=== PATIENT | male | born 1985 | race Caucasian/White ===

== ENCOUNTER 2017-02-24 22:49 | Emergency (ER) | payer OTHER ==
[2017-02-24] MEDS ORDERED: ACETAMINOPHEN 325 MG TABLET (FP) PO ONE (22:53)
[2017-02-24] MEDS ORDERED: SODIUM CHLORIDE 0.9% 1000 ML INFUS.BAG IV ONE (23:00)
--- NOTE | 2017-02-24 23:00 | PDOC ---
History of Present Illness - General History Source: Patient Exam Limitations: No Limitations - History of Present Illness Initial Comments: 02/24/17 23:16 The patient is a 31 year old male with no significant past medical history, who presents to the ER with tingling in the left hand and numbness in the left arm for several hours. Patient says he is unstable on his feet. Patient states he has had a throat infection for the past three weeks. He went to the urgent care for his throat infection and was given a shot of prednisone and 1 Z-pack. Patient says he felt better for 3-5 days after the urgent care but symptoms returned. Patient reports he has difficulty swallowing secondary to the pain. He took Advil 30 minutes ago with incomplete relief of symptoms. Denies nausea, vomiting Denies family history of cardiac disorders Denies fever, chills, cough Social Hx: Patient is a smoker Allergy: penicillin <Tisha Vences - Last Filed: 02/24/17 23:16> <Aysha Auguste - Last Filed: 02/25/17 01:31> - General Stated Complaint: CHEST PAIN Time Seen by Provider: 02/24/17 22:53 Past History <Tisha Vences - Last Filed: 02/24/17 23:16> <Aysha Auguste - Last Filed: 02/25/17 01:31> - Past Medical History Allergies/Adverse Reactions: Allergies Allergy/AdvReac Type Severity Reaction Status Date / Time Penicillins Allergy Unknown Verified 02/24/17 23:10 Home Medications: Ambulatory Orders Clindamycin [Cleocin -] 300 mg PO Q6HPO #28 capsule 02/25/17 Review of Systems - Review of Systems Able to Perform ROS?: Yes Comments:: 02/24/17 23:16 CONSTITUTIONAL: Absent: fever, no chills, no fatigue EYES: Absent: visual changes ENT:(+) sore throat Present: Absent: ear pain CARDIOVASCULAR: Absent: chest pain, no palpitations RESPIRATORY: Absent: cough, no SOB GI: Absent: abdominal pain, no nausea, no vomiting, no constipation, no diarrhea GENITOURINARY: Absent: dysuria, no frequency, no hematuria MUSCULOSKELETAL: Present: (+) left arm numbness, (+) left hand tingling Absent: back pain, no arthralgia, no myalgia SKIN: Absent: rash NEURO: Absent: headache <Tisha Vences - Last Filed: 02/24/17 23:16> *Physical Exam - Vital Signs Last Vital Signs Temp Pulse Resp BP Pulse Ox 98.6 F 106 H 24 156/98 99 02/24/17 23:10 02/24/17 23:10 02/24/17 23:10 02/24/17 23:10 02/24/17 23:10 - Physical Exam Comments: 02/24/17 23:18 GENERAL: Well-appearing, well-nourished. No apparent distress. HEENT: Throat is erythematous and swollen. Left lymphadenopathy. Normocephalic, atraumatic. PERRL, EOM intact. CARDIOVASCULAR: Normal S1, S2. Regular rate and rhythm. PULMONARY: Clear to auscultation bilaterally. ABDOMEN: Soft, non-distended, non-tender. EXTREMITIES: Normal ROM in all four extremities. No gross deformities. SKIN: Warm, dry. No rash NEUROLOGICAL: No focal neurological deficits. <Tisha Vences - Last Filed: 02/24/17 23:16> ED Treatment Course - Medications Given in the ED: ED Medications Discontinued Medications Generic Name Dose Route Start Last Admin Trade Name Freq PRN Reason Stop Dose Admin Acetaminophen 650 mg 02/24/17 22:53 02/24/17 23:09 Tylenol - PO 02/24/17 22:54 650 mg ONCE ONE Administration Sodium Chloride 500 ml 02/24/17 23:00 02/24/17 23:10 Normal Saline - IV 02/24/17 23:01 500 ml ONCE ONE Administration <Tisha Vecnes - Last Filed: 02/24/17 23:16> - LABORATORY CBC & Chemistry Diagram: 02/24/17 23:30 02/24/17 23:30 <Aysha Auguste - Last Filed: 02/25/17 01:31> Medical Decision Making - Medical Decision Making 02/25/17 01:26 PT comes with anxiety and chest pain. States that he has pain foing down his arm and tingling in fingers. CXR and EKG are normal. Pt has no fam hx of CAD. He has no risk factors, no DM and no HTN and no HLD. He is a smoker 1/3 PPD. He has no fever or chills. He was with a friend when he started having CP. Pt states that he was treated for a step throat 3 weeks ago with a zpak. He now has copntinued sore throat and exudate and it seems that the pharyngitis was not appropriately treated. He has PCN allergy and he will be given clinda here. Pt will be discharged home with clinda... f/u with ENT Octavio. <Aysha Auguste - Last Filed: 02/25/17 01:31> *DC/Admit/Observation/Transfer - Attestations Scribe Attestion: 02/24/17 23:19 Documentation prepared by Tisha Vences, acting as medical voucher clerk for Aysha Auguste MD. <Tisha Vences - Last Filed: 02/24/17 23:16> - Discharge Dispostion Admit: No <Aysha Auguste - Last Filed: 02/25/17 01:31> Diagnosis at time of Disposition: Pharyngitis, Dehydration, Anxiety - Discharge Dispostion Disposition: HOME Condition at time of disposition: Improved - Prescriptions Prescriptions: Clindamycin [Cleocin -] 300 mg PO Q6HPO #28 capsule - Referrals Referrals: Fransico Akbar MD [Primary Care Provider] - Lewis Cunningham MD [Staff Physician] - - Patient Instructions Printed Discharge Instructions: DI for Pharyngitis/Tonsillopharyngitis -- Adult
[2017-02-24 23:25] VITALS: TEMP 98.6; BMI 28.8
[2017-02-24 23:40] LABS: BASOPHIL 0.5 % (0-2.0); EOSINOPHIL 0.4 % (0-4.5); MCH 26.6 pg (25.7-33.7); MCHC 33.4 g/dl (32.0-35.9); MEAN CELL VOLUME 79.6 fl (80-96); MEAN PLT VOLUME 7.7 fl (7.5-11.1); NEUTROPHILS 78.9 % (42.8-82.8); PLATELET COUNT 217 K/MM3 (134-434); RDW 13.2 % (11.9-15.9); WHITE BLOOD COUNT 13.8 K/mm3 (4.0-10.0)
[2017-02-25] LABS: ALBUMIN 3.7 g/dl (3.4-5.0); ANION GAP 13 (8-16); BILIRUBIN,TOTAL 0.3 mg/dL (0.2-1.0); CALCIUM 8.8 mg/dL (8.5-10.1); CO2 28 mmol/L (21-32); GLUCOSE,RANDOM 124 mg/dL (74-106); SGOT/AST 44 U/L (15-37); SGPT/ALT 51 U/L (12-78); TOT PROT 7.8 g/dl (6.4-8.2)
[2017-02-25 00:06] LABS: ALK PHOS 102 U/L (45-117); COCKROFT - GAULT 144.96; CREATININE 0.9 mg/dL (0.7-1.3); TROPONIN I < 0.02 ng/ml (0.00-0.05)
[2017-02-25] MEDS ORDERED: CLINDAMYCIN HCL 300 MG CAPSULE PO ONE (00:15)
[2017-02-25] MEDS ORDERED: CLINDAMYCIN HCL 150 MG CAPSULE (FP) ONE (00:22)
[2017-02-25 01:26] VITALS: BP 120/63; PULSE 85
--- NOTE | 2017-02-27 12:51 | EKG ---
Test Reason : Blood Pressure : / mmHG Vent. Rate : 111 BPM Atrial Rate : 111 BPM P-R Int : 158 ms QRS Dur : 070 ms QT Int : 296 ms P-R-T Axes : 035 -03 020 degrees QTc Int : 402 ms SINUS TACHYCARDIA OTHERWISE NORMAL ECG NO PREVIOUS ECGS AVAILABLE Confirmed by MARIBELL CURTIS MD ([id number]) on 02/27/2017 12:50:59 PM Referred By: Confirmed By:MARIBELL CURTIS MD
== END 2017-02-25 01:50 | disposition home or self-care (01) ==
LOC: JER 22:49
DX: J02.9 Acute pharyngitis, unspecified (principal); E86.0 Dehydration; F41.9 Anxiety disorder, unspecified
CPT/HCPCS: 36415; 70360-TC; 80053; 82550; 82553; 84484; 85025; 87070; 87430; 93005; 93010; 99283-25